=== PATIENT | male | born 1985 | race Two or more races ===

== ENCOUNTER 2021-04-26 23:19 | Emergency (ER) | payer MEDICAID ==
[~2021-04-26] VITALS: Ht 177.8 cm; Wt 94.3 kg
[2021-04-26] MEDS ORDERED: MORPHINE SULFATE 4 MG/ML, 1ML ONE (23:47)
[2021-04-26] MEDS ORDERED: DIPH,PERTUSS(ACELL),TET VAC/PF 0.5 ML IM-VACC ONE (23:47)
[2021-04-26] MEDS ORDERED: ONDANSETRON 2MG/ML, 2ML ONE (23:47)
[2021-04-26 23:58] LABS: BASOPHILS % (AUTO) 1 % (0-1); EOSINOPHILS % (AUTO) 4 % (1-7); LYMPHOCYTES % (AUTO) 46 % (22-44); MEAN CORPUSCULAR HGB CONC 33.8 g/dL (33.2-36.2); MEAN PLATELET VOLUME 8.7 fL (7.4-10.4); MONOCYTES % (AUTO) 6 % (2-9); NEUTROPHILS % (AUTO) 44 % (42-75); PLATELET COUNT 232 x10^3/uL (130-400); RED BLOOD COUNT 4.45 x10^6/uL (4.38-5.82); RED CELL DISTRIBUTION WIDTH 15.4 % (9.4-14.8)
[2021-04-27] MEDS ORDERED: MORPHINE SULFATE 4 MG/ML, 1ML IVPush PRN
[2021-04-27] MEDS ORDERED: DIPH,PERTUSS(ACELL),TET VAC/PF 0.5 ML IM-VACC ONE
[2021-04-27] MEDS ORDERED: ONDANSETRON 2MG/ML, 2ML IVPush ONE
[2021-04-27 00:07] LABS: ALANINE AMINOTRANSFERASE 98 U/L (12-78); ALBUMIN 3.4 g/dL (3.4-5.0); ANION GAP 3 mmol/L (5-15); CALCIUM 8.4 mg/dL (8.5-10.1); CHLORIDE 108 mmol/L (98-107); CREATININE 0.73 mg/dL (0.7-1.3)
[2021-04-27 00:09] LABS: ALKALINE PHOSPHATASE 87 U/L (45-117); BILIRUBIN,TOTAL 0.2 mg/dL (0.2-1.0); TOTAL PROTEIN 7.3 g/dL (6.4-8.2)
--- NOTE | 2021-04-27 00:28 | NUR ---
Pt in radiology for multiple scans.
[2021-04-27] MEDS ORDERED: OMNIPAQUE 350 MG/ML, 100ML BOTTLE ONE (00:43)
--- NOTE | 2021-04-27 00:57 | NUR ---
Pt returned from CT/xray. Pt sleeping/snoring on CELESTE galvan and will cont to monitor.
[2021-04-27 01:43] VITALS: BP 113/66
--- NOTE | 2021-04-27 02:08 | NUR ---
UA collected and sent to lab. Pt resting on gurney, at bedside.
[2021-04-27 02:38] LABS: MICROSCOPIC NOT IND
== END 2021-04-27 03:56 | disposition home or self-care (01) ==
LOC: ED 23:22
DX: S90.01XA Contusion of right ankle, initial encounter (principal); S90.02XA Contusion of left ankle, initial encounter; M79.652 Pain in left thigh; R07.89 Other chest pain; F17.200 Nicotine dependence, unspecified, uncomplicated; X58.XXXA Exposure to other specified factors, initial encounter; Y93.89 Activity, other specified; Y92.89 Other specified places as the place of occurrence of the external cause; Y99.8 Other external cause status
CPT/HCPCS: 36415; 71260; 72170; 73552; 73564; 73610; 74177; 80053; 81003; 85025; 90471; 90715; 96374; 96375; 99285; J2270; J2405; Q9967

== ENCOUNTER 2021-05-14 16:36 | Emergency (ER) | payer MEDICAID ==
[~2021-05-14] VITALS: Ht 177.8 cm; Wt 89.3 kg
[2021-05-14 16:44] VITALS: BP 104/59
--- NOTE | 2021-05-14 17:39 | NUR ---
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 PT SEEN EXITING ER.
[2021-05-14] MEDS ORDERED: ONDANSETRON 2MG/ML, 2ML IVPush ONE (18:00)
[2021-05-14] MEDS ORDERED: SODIUM CHLORIDE 0.9% 1,000ML IVBOLUS ONE (18:00)
[2021-05-14] MEDS ORDERED: SODIUM CHLORIDE FLUSH 10ML SYR IVF ONE (18:30)
== END 2021-05-14 17:43 | disposition left against medical advice (07) ==
LOC: ED 17:35
DX: R11.2 Nausea with vomiting, unspecified (principal)
CPT/HCPCS: 99281